=== PATIENT | male | born 1940 | race Hispanic/Latino ===

== ENCOUNTER 2017-01-27 19:12 | Observation (INO) | payer MEDICARE, BC ==
--- NOTE | 2017-01-27 20:17 | ED PDOC ---
Syncope/Near Syncope/Dizzyness Time Seen by Provider: 01/27/17 19:36 Chief Complaint (Nursing): Syncope Chief Complaint (Provider): Syncope History Per: Family (daughter) History/Exam Limitations: no limitations Onset/Duration Of Symptoms: Mins (just prior to arrival), Sudden Onset Current Symptoms Are (Timing): Better Number Of Syncopal Episodes: 1 Activity At Onset Of Symptoms: Sitting Associated Symptoms Preceding Syncopal Episode: No Predromal Symptoms (Sudden Onset). denies: Lightheadedness, Other (convulsive activity) Fall Associated With With Symptoms: No Severity: Moderate Additional Complaint(s): Dev Villegas is a 77 year old male, with no pertinent past medical history, who presents to the emergency department via EMS for the evaluation of a syncopal episode, that the patient experienced just prior to arrival. According to the patient's , he suddenly went unconscious while sitting down. Patient states that he does not remember what happened. Initially, after waking up, patient's daughter reports that he was in a state of confusion and wasn't speaking, but rather just looking around without speaking, which resolved itself within a few minutes. No convulsive activity was reported during the syncopal episode. Associated cough has been present for the past 3 days. The cough is reportedly dry; however, patient feels like he has a lot chest congestion going up into his throat. Denies a fever, rhinorrhea, sore throat, shortness of breath, focal weakness, blurry vision, difficulty speaking, or pre- syncopal symptoms of lightheadedness, chest pain, or a headache. PMD: Dr. Alex Marino - Risk Factors Risk Factors (Syncope): Neg: H/O Ventricular Arrhythmias, Known Coronary Artery Disease, H/O Severe Valvular Disease, H/O Congenital Heart Disease, Exertional Syncope Past Medical History Reviewed: Historical Data, Nursing Documentation, Vital Signs Vital Signs: Last Vital Signs Temp 96.9 F L 01/27/17 19:17 Pulse 68 01/27/17 19:17 Resp 18 01/27/17 19:17 BP 136/69 01/27/17 19:17 Pulse Ox 98 01/27/17 19:17 - Medical History Other PMH: Prostate Disease - Surgical History Surgical History: No Surg Hx - Family History Family History: States: No Known Family Hx - Living Arrangements Living Arrangements: With Family - Social History Current smoker - smoking cessation education provided: No Ex-Smoker (has not smoked in the last 12 months): Yes (Heavy smoker) Alcohol: None - Home Medications Home Medications: Ambulatory Orders Medication Instructions Recorded Tamsulosin [Flomax] 0.4 mg PO DAILY 01/27/17 Aspirin [Aspirin Chewable] 81 mg PO DAILY #30 01/28/17 Atorvastatin [Lipitor] 20 mg PO HS #30 tab 01/28/17 Losartan [Cozaar] 50 mg PO DAILY #30 01/28/17 Tamsulosin [Flomax] 0.4 mg PO DAILY #30 cap 01/28/17 - Allergies Allergies/Adverse Reactions: Allergies Allergy/AdvReac Type Severity Reaction Status Date / Time Unobtainable Allergy Verified 01/27/17 23:43 Review of Systems ROS Statement: Except As Marked, All Systems Reviewed And Found Negative Constitutional: Negative for: Fever Eyes: Negative for: Vision Change ENT: Negative for: Nose Discharge, Throat Pain Cardiovascular: Positive for: Other (chest congestion). Negative for: Chest Pain Respiratory: Positive for: Cough. Negative for: Shortness of Breath, Sputum Neurological: Positive for: Confusion, Other (loss of consciousness and memory impairment; denies lightheadedness or focal weakness). Negative for: Change in Speech (difficulty speaking), Headache Physical Exam - Reviewed Nursing Documentation Reviewed: Yes Vital Signs Reviewed: Yes - Physical Exam Appears: Positive for: Well (tired appearing), Non-toxic, No Acute Distress Head Exam: Positive for: ATRAUMATIC, NORMAL INSPECTION, NORMOCEPHALIC Skin: Positive for: Normal Color, Warm, Dry Eye Exam: Positive for: Normal appearance, EOMI, PERRL ENT: Positive for: Normal ENT Inspection, Pharynx Is (clear), Other (tacky mucous membranes). Negative for: Pharyngeal Erythema, Tonsillar Exudate Neck: Positive for: Normal, Painless ROM, Supple Cardiovascular/Chest: Positive for: Regular Rate, Rhythm. Negative for: Murmur Respiratory: Positive for: Normal Breath Sounds. Negative for: Wheezing, Respiratory Distress Gastrointestinal/Abdominal: Positive for: Normal Exam, Soft. Negative for: Tenderness Back: Positive for: Normal Inspection. Negative for: Decreased ROM Extremity: Positive for: Normal ROM. Negative for: Tenderness, Deformity Lymphatic: Negative for: Adenopathy Neurologic/Psych: Positive for: Alert, Oriented, Facial Droop (appears to have slight L facial droop; however, daughter states that this normal for patient). Negative for: Motor/Sensory Deficits - Laboratory Results Result Diagrams: 01/28/17 07:30 01/28/17 07:30 - ECG O2 Sat by Pulse Oximetry: 98 (RA) Pulse Ox Interpretation: Normal Medical Decision Making Medical Decision Makin:36 Initial Impression: Syncope and cough Initial Plan: * CT Head w/o Contrast * Chest X-Ray * EKG * VBG Shock Panel * CBC * CMP * PT/PTT * Troponin I * Magnesium * Phosphorous * Glucose, Blood, POC * Urine Dip * Influenza A/B * Blood Culture * Reevaluation 20:08 Patient will require hospitalization for syncope given age and possibility of arrhythmia. EXAM: CT Head Without Intravenous Contrast CLINICAL HISTORY: 77 years old, male; Signs and symptoms; Syncope and collapse TECHNIQUE: Axial computed tomography images of the head/brain without intravenous contrast. This CT exam was performed using one or more of the following dose reduction techniques: automated exposure control, adjustment of the mA and/or kV according to patient size, and/or use of iterative reconstruction technique. Coronal and sagittal reformatted images were created and reviewed. COMPARISON: No relevant prior studies available. FINDINGS: Brain: Mild atrophy. No intracranial hemorrhage. No mass. Several scattered foci of decreased attenuation within periventricular/subcortical white matter. Chronic lacunar infarcts within basal ganglia. No definite edema. Ventricles: No hydrocephalus. Bones/joints: No acute fracture. Soft tissues: Unremarkable. Vasculature: Atherosclerotic disease of intracranial arteries. Sinuses: Moderate mucosal thickening of ethmoid sinuses. Moderate mucosal thickening/air-fluid level of RIGHT maxillary sinus. Tiny air-fluid level of LEFT maxillary sinus. Scattered mild mucosal thickening of sphenoid, RIGHT frontal sinuses. Mastoid air cells: No mastoid effusion. Orbits: Unremarkable as visualized. IMPRESSION: 1. Nonspecific white matter changes. Acute infarction may be CT occult within first 24 hours. If a focal deficit persists, consider followup CT or MRI for further evaluation. 2. Sinus disease. 3. Incidental/non-acute findings are described above. Thank you for allowing us to participate in the care of your patient. Dictated and Authenticated by: Simon Schreiber MD 01/27/2017 8:55 PM Eastern Time ([place] & [place]) Elevated lactic acid, otherwise no clinically significant lab abnormalities. CXR demonstrates increased interstitial markings. CHAYA Diego PMD for hospitalization Scribe Attestation: Documented by Amarjit Macias, acting as a scribe for Anna Tinajero MD. Provider Scribe Attestation: All medical record entries made by the Scribe were at my direction and personally dictated by me. I have reviewed the chart and agree that the record accurately reflects my personal performance of the history, physical exam, medical decision making, and the department course for this patient. I have also personally directed, reviewed, and agree with the discharge instructions and disposition. Disposition - Clinical Impression Clinical Impression: Syncope Discussed With : García Diego - Disposition Disposition Time: 20:00 Condition: SERIOUS - Pt Status Changed To: Hospital Disposition Of: Observation - POA Present On Arrival: Falls Or Trauma
[2017-01-27 20:50] LABS: BASO # 0.1 K/uL (0.0-0.2); BASO % 0.6 % (0.0-2.0); EOS # 0.5 K/uL (0.0-0.7); EOS % 4.3 % (0.0-4.0); HEMATOCRIT 40.6 % (35.0-51.0); LYMPH # 2.4 K/uL (1.0-4.3); LYMPH % 23.2 % (20.0-40.0); MEAN CELL VOLUME 86.1 fl (80.0-94.0); MEAN CORPUSCULAR HEMOGLOBIN 29.6 pg (27.0-31.0); MEAN CORPUSCULAR HGB CONC 34.3 g/dL (33.0-37.0); MEAN PLATELET VOLUME 7.6 fl (7.2-11.7); MONO # 0.6 K/uL (0.0-0.8); MONO % 5.6 % (0.0-10.0); NEUT # 6.9 K/uL (1.8-7.0); NEUT % 66.3 % (50.0-75.0); RED CELL DISTRIBUTION WIDTH 13.9 % (11.5-14.5); WHITE BLOOD COUNT 10.5 K/uL (4.8-10.8)
[2017-01-27 20:52] LABS: VENOUS BLOOD GAS BASE EXCESS -4.7 mmol/L (0.0-2.0); VENOUS BLOOD GAS PCO2 67 mmHg (40-60); VENOUS BLOOD PH 7.18 (7.32-7.43)
--- NOTE | 2017-01-27 20:55 | CT ---
EXAM: CT Head Without Intravenous Contrast CLINICAL HISTORY: 77 years old, male; Signs and symptoms; Syncope and collapse TECHNIQUE: Axial computed tomography images of the head/brain without intravenous contrast. This CT exam was performed using one or more of the following dose reduction techniques: automated exposure control, adjustment of the mA and/or kV according to patient size, and/or use of iterative reconstruction technique. Coronal and sagittal reformatted images were created and reviewed. COMPARISON: No relevant prior studies available. FINDINGS: Brain: Mild atrophy. No intracranial hemorrhage. No mass. Several scattered foci of decreased attenuation within periventricular/subcortical white matter. Chronic lacunar infarcts within basal ganglia. No definite edema. Ventricles: No hydrocephalus. Bones/joints: No acute fracture. Soft tissues: Unremarkable. Vasculature: Atherosclerotic disease of intracranial arteries. Sinuses: Moderate mucosal thickening of ethmoid sinuses. Moderate mucosal thickening/air-fluid level of RIGHT maxillary sinus. Tiny air-fluid level of LEFT maxillary sinus. Scattered mild mucosal thickening of sphenoid, RIGHT frontal sinuses. Mastoid air cells: No mastoid effusion. Orbits: Unremarkable as visualized. IMPRESSION: 1. Nonspecific white matter changes. Acute infarction may be CT occult within first 24 hours. If a focal deficit persists, consider followup CT or MRI for further evaluation. 2. Sinus disease. 3. Incidental/non-acute findings are described above.
[2017-01-27 21:11] LABS: BLOOD UREA NITROGEN 14 mg/dl (9-20); CALCIUM 9.6 mg/dL (8.4-10.2); CARBON DIOXIDE 24 mmol/L (22-30); CHLORIDE 99 mmol/L (98-107); GFR AFRICAN-AMERICAN > 60; GLUCOSE,RANDOM 99 mg/dL (75-110); MAGNESIUM 2.1 MG/DL (1.6-2.3); PHOSPHOROUS 3.3 mg/dl (2.5-4.5); SODIUM 139 mmol/l (132-148); TOTAL PROTEIN 7.8 G/DL (6.3-8.2)
[2017-01-27 21:12] LABS: ALB/GLOB RATIO 1.3 (1.0-2.1); ALKALINE PHOSPHATASE 60 U/L (38-126); ALT/SGPT 28 U/L (21-72); AST/SGOT 28 U/L (17-59); BILIRUBIN,TOTAL 0.6 mg/dl (0.2-1.3)
[2017-01-27 21:39] LABS: PARTIAL THROMBOPLASTIN TIME 29.3 SECONDS (23.3-32.5)
[2017-01-27] MEDS ORDERED: cefTRIAXone (Rocephin) 1 gm Inj ONE (23:44)
[2017-01-28] MEDS: Dextrose 5%/0.45% NS 1,000 ML IV SCH ×2 (00:01→13:45)
[2017-01-28 08:57] LABS: HEMATOCRIT 37.7 % (35.0-51.0); MEAN CELL VOLUME 85.7 fl (80.0-94.0); MEAN CORPUSCULAR HEMOGLOBIN 29.3 pg (27.0-31.0); MEAN CORPUSCULAR HGB CONC 34.1 g/dL (33.0-37.0); RED CELL DISTRIBUTION WIDTH 13.4 % (11.5-14.5); WHITE BLOOD COUNT 11.1 K/uL (4.8-10.8)
[2017-01-28 09:00] LABS: BLOOD UREA NITROGEN 9 mg/dl (9-20); CARBON DIOXIDE 28 mmol/L (22-30); CHLORIDE 103 mmol/L (98-107); GFR AFRICAN-AMERICAN > 60; GLUCOSE,RANDOM 135 mg/dL (75-110); POTASSIUM 4.5 MMOL/L (3.6-5.0); SODIUM 140 mmol/l (132-148)
[2017-01-28] MEDS ORDERED: Enoxaparin 40 mg Syringe SC SCH (09:00)
--- NOTE | 2017-01-28 09:59 | RAD ---
HISTORY: sob COMPARISON: No prior. FINDINGS: LUNGS: No active pulmonary disease. PLEURA: No significant pleural effusion identified, no pneumothorax apparent. CARDIOVASCULAR: Normal. OSSEOUS STRUCTURES: No significant abnormalities. VISUALIZED UPPER ABDOMEN: Normal. OTHER FINDINGS: None. IMPRESSION: No active disease.
--- NOTE | 2017-01-28 10:09 | CARD ---
APPROVED REPORT EKG Measurement Heart [id number] <Conclusion> Sinus rhythm with 1st degree AV block Otherwise normal ECG
--- NOTE | 2017-01-28 11:37 | CARD ---
APPROVED REPORT EXAM: Two-dimensional and M-mode echocardiogram with Doppler and color Doppler. Other Information Quality : GoodRhythm : NSR INDICATION Syncope 2D DIMENSIONS IVSd0.80 (0.7-1.1cm)LVDd3.93 (3.9-5.9cm) LVOT Diameter2.32 (1.8-2.4cm)PWd0.92 (0.7-1.1cm) IVSs1.32 (0.8-1.2cm)LVDs2.59 (2.5-4.0cm) FS (%) 34.1 %PWs1.22 (0.8-1.2cm) M-Mode DIMENSIONS Left Atrium (MM)4.65 (2.5-4.0cm)IVSd1.01 (0.7-1.1cm) Aortic Root3.32 (2.2-3.7cm)LVDd5.73 (4.0-5.6cm) Aortic Cusp Exc.1.89 (1.5-2.0cm)PWd0.87 (0.7-1.1cm) IVSs0.87 cmFS (%) 18 % LVDs4.68 (2.0-3.8cm)PWs1.05 cm Mitral Valve MV E Kafxrhur16.3cm/sMV DECEL [id number] A Hipjkccf93.3cm/s MV GQO91aoR/A ratio0.7MVA (PHT)3.81cm2 TDI Lateral E' Peak V8.15cm/sMedial E' Peak V8.31cm/sE/Lateral E'7.9 E/Medial E'7.7 LEFT VENTRICLE The left ventricle is normal size. There is normal left ventricular wall thickness. The left ventricular function is normal. The left ventricular ejection fraction is - 75%. There is normal LV segmental wall motion. Transmitral Doppler flow pattern is Grade I-abnormal relaxation pattern. No left ventricle thrombus noted on this study. There is no ventricular septal defect visualized. There is no left ventricular aneurysm. There is no mass noted in the left ventricle. RIGHT VENTRICLE The right ventricle is normal size. There is normal right ventricular wall thickness. The right ventricular systolic function is normal. ATRIA The left atrium is mildly dilated. There is no thrombus suspected in the left atrium. The right atrium size is normal. The interatrial septum is intact with no evidence for an atrial septal defect. AORTIC VALVE The aortic valve is normal in structure and function. No aortic regurgitation is present. There is no aortic valvular stenosis. There is no aortic valvular vegetation. MITRAL VALVE The mitral valve is normal in structure and function. There is no evidence of mitral valve prolapse. There is no mitral valve stenosis. There is no mitral valve regurgitation noted. TRICUSPID VALVE The tricuspid valve is normal in structure and function. There is no tricuspid valve regurgitation noted. There is no tricuspid valve prolapse or vegetation. There is no tricuspid valve stenosis. PULMONIC VALVE The pulmonic valve is not well visualized. Doppler studies of the PV were not performed. GREAT VESSELS The aortic root is normal in size. The IVC is normal in size and collapses >50% with inspiration. PERICARDIAL EFFUSION There is a small anterior echo free space. There is no pleural effusion. <Conclusion> The left ventricle is normal in size and wall thickness. The left ventricular function is normal. The left ventricular ejection fraction is - 75%. The left atrium is mildly dilated. The mitral, aortic and tricuspid valves are normal.
--- NOTE | 2017-01-28 12:48 | MRI ---
PROCEDURE: MRI BRAIN WITHOUT CONTRAST HISTORY: code bat COMPARISON: Comparison is made to previous CT dated 01/27/2017 TECHNIQUE: Multiplanar, multisequence MR images of the brain were obtained without intravenous contrast enhancement. FINDINGS: HEMORRHAGE: None DWI: No evidence of an acute or early subacute infarction. BRAIN PARENCHYMA: Small foci of encephalomalacia in the basal ganglia and thalamus larger on the right suggestive of old lacunar infarct. Moderate atrophy and moderate chronic microvascular white matter ischemic disease. VENTRICLES: Unremarkable. No hydrocephalus. CRANIUM: Unremarkable. ORBITS: Grossly unremarkable. PARANASAL SINUSES/MASTOIDS: Almost complete opacification of the right maxillary sinus and small air-fluid level at the left maxillary sinus. Diffuse mucosal thickening in the ethmoid and frontal sinuses suggestive of sinusitis. VASCULAR SYSTEM: Skull base flow voids intact. OTHER FINDINGS: None. IMPRESSION: No evidence of acute or subacute infarct. No evidence of acute intracranial hemorrhage mass effect or midline shift. Moderate atrophy. Moderate white matter changes suggestive of chronic microvascular ischemic disease. Lacunar chronic infarcts at the bilateral basal ganglia and thalami larger on the right. Pansinusitis more prominent at the right maxillary sinus.
--- NOTE | 2017-01-28 12:50 | CON ---
DATE: 01/28/2017 REASON FOR CONSULTATION: Syncope versus seizures. The patient is a 77-year-old Chinese male who has a history of hypertension and hyperlipidemia who nuno s not been taking medications for a long time. Last time he saw his primary physician, Dr. Diego, a few years ago. The patient is a former smoker who quit 2-3 years ago according to him. He is an o ccasional drinker, lives with his . The patient felt dizzy and collapsed while sitting at home. There was no fall. The patient did report urinary incontinence. He denies any tongue biting and th e patient is concerned about his . She is getting nervous. She had recent foot amputation and phil steiner bought her a shoe that cost him almost $1000. The patient denies any history of stroke or heart at tack in the past. The patient does not recall the event, but blames his for being nervous and e xaggerated the whole situation. The patient does not recall experiencing speech difficulty. The pat ient denies any history of seizures. SOCIAL HISTORY: The patient is a former smoker who quit 2-3 years ago. He is and lives with his . MEDICATIONS: Rocephin 1 gram intravenously daily, Cozaar 50 mg once a day, Flomax 0.4 mg once a day, Lovenox 40 mg subcutaneously once a day, D5 half normal saline at 70 mL an hour. REVIEW OF SYSTEMS: No nausea or vomiting. No fever or chills. The patient did report urinary incon tinence during the event of unresponsiveness. PHYSICAL EXAMINATION: GENERAL: The patient is an elderly male who does not appear to be in any distress. VITAL SIGNS: Blood pressure 147/65, heart rate 69, temperature 98.2, respirations 18. HEENT: Normocephalic. NECK: No JVD. CHEST: Clear. HEART: S1, S2 regular. ABDOMEN: Soft. EXTREMITIES: No edema. Head CT scan without contrast, nonspecific white matter changes, sinus disease. EKG reveals sinus rh ythm with first degree AV block at a rate of 69. ASSESSMENT: 1. Syncope versus seizure activity. 2. Hypertension. 3. Hyperlipidemia. 4. Rule out transient ischemic attack. RECOMMENDATIONS: The case was discussed at length with Dr. Diego, the primary physician. Janes rojas brain MRI performed today as well as follow carotid Doppler study scheduled to be performed tod ay. I will review the echocardiograph study that was performed today. In the meantime, maintain the patient on aspirin and Lipitor therapy. In the meantime, continue the patient on Cozaar, subcutaneo us Lovenox, start aspirin 81 mg once a day, Lipitor 20 mg once a day. Nahid Maldonado MD cc: [id number] TT: 01/28/2017 12:49:37 Confirmation # [id number] Dictation # [id number]
--- NOTE | 2017-01-28 13:12 | CP.PCM.HP ---
History of Present Illness - History of Present Illness History of Present Illness: Dev Villegas is a 77 year old male, with past medical history of HTN and BPH. Patient not c/o with antihypertensive medication, his last visit in my office was about 3 yrs ago. He presents in ER via EMS for the evaluation of a syncopal episode, that the patient experienced just prior to arrival. According to the patient's , he suddenly went unconscious while sitting down. Patient states that he does not remember what happened. Initially, after waking up, patient's daughter reports that he was in a state of confusion and wasn't speaking, but rather just looking around without speaking, which resolved itself within a few minutes. No convulsive activity was reported during the syncopal episode. Associated cough has been present for the past 3 days. The cough is reportedly dry; however, patient feels like he has a lot chest congestion going up into his throat. o specific precipitants for the event. Denies a fever, rhinorrhea, sore throat, shortness of breath, focal weakness, blurry vision, difficulty speaking, or pre-syncopal symptoms of lightheadedness , chest pain, or a headache. Present on Admission - Present on Admission Any Indicators Present on Admission: No Review of Systems - Constitutional Constitutional: As Per HPI - EENT Eyes: As Per HPI Ears: As Per HPI Nose/Mouth/Throat: As Per HPI - Cardiovascular Cardiovascular: As Per HPI - Respiratory Respiratory: As Per HPI - Gastrointestinal Gastrointestinal: As Per HPI - Musculoskeletal Musculoskeletal: As Per HPI - Integumentary Integumentary: As Per HPI - Neurological Neurological: As Per HPI Past Patient History - Past Social History Smoking Status: Former Smoker - CARDIAC Hx Hypertension: Yes - PULMONARY Hx Respiratory Disorders: No - NEUROLOGICAL Hx Neurological Disorder: No - HEENT Hx HEENT Problems: No - RENAL Hx Chronic Kidney Disease: No - ENDOCRINE/METABOLIC Hx Endocrine Disorders: No - HEMATOLOGICAL/ONCOLOGICAL Hx Blood Disorders: No Hx AIDS: No Hx Human Immunodeficiency Virus (HIV): No - INTEGUMENTARY Hx Dermatological Problems: No - MUSCULOSKELETAL/RHEUMATOLOGICAL Hx Musculoskeletal Disorders: No Hx Falls: No - GASTROINTESTINAL Hx Gastrointestinal Disorders: No - GENITOURINARY/GYNECOLOGICAL Hx Prostate Problems: Yes - PSYCHIATRIC Hx Psychophysiologic Disorder: No Hx Substance Use: No - SURGICAL HISTORY Hx Surgeries: No - ANESTHESIA Hx Anesthesia: Yes Hx Anesthesia Reactions: No Hx Malignant Hyperthermia: No Has any member of the family had a problem w/ anesthesia?: No Meds Allergies/Adverse Reactions: Allergies Allergy/AdvReac Type Severity Reaction Status Date / Time Unobtainable Allergy Verified 01/27/17 23:43 Physical Exam - Constitutional Appears: Non-toxic - Head Exam Head Exam: ATRAUMATIC, NORMAL INSPECTION, NORMOCEPHALIC - Eye Exam Eye Exam: EOMI, Normal appearance, PERRL Pupil Exam: PERRL - ENT Exam ENT Exam: Mucous Membranes Moist - Neck Exam Neck exam: Positive for: Normal Inspection - Respiratory Exam Respiratory Exam: Decreased Breath Sounds, Clear to Auscultation Bilateral - Cardiovascular Exam Cardiovascular Exam: REGULAR RHYTHM, +S1, +S2 - GI/Abdominal Exam GI & Abdominal Exam: Normal Bowel Sounds - Neurological Exam Neurological exam: Alert, CN II-XII Intact, Oriented x3, Reflexes Normal - Psychiatric Exam Psychiatric exam: Normal Affect - Skin Skin Exam: Normal Color Results - Vital Signs Recent Vital Signs: Last Vital Signs Temp 97.4 F L 01/28/17 13:05 Pulse 75 01/28/17 13:05 Resp 18 01/28/17 13:05 BP 145/66 01/28/17 13:05 Pulse Ox 97 01/28/17 13:05 - Labs Result Diagrams: 01/28/17 07:30 01/28/17 07:30 Labs: Laboratory Results - last 24 hr 01/28/17 01/28/17 07:30 07:30 WBC 11.1 H RBC 4.40 Hgb 12.9 Hct 37.7 MCV 85.7 MCH 29.3 MCHC 34.1 RDW 13.4 Plt Count 270 Sodium 140 Potassium 4.5 Chloride 103 Carbon Dioxide 28 Anion Gap 14 BUN 9 Creatinine 0.8 Est GFR ( Amer) > 60 Est GFR (Non-Af Amer) > 60 Random Glucose 135 H Calcium 9.0 Lactate Dehydrogenase 227 L Assessment & Plan (1) Hypertensive cardiovascular disease or syndrome Status: Chronic (2) BPH (benign prostatic hyperplasia) Status: Chronic (3) Syncope Status: Acute - Assessment and Plan (Free Text) Plan: W/U pending.
[2017-01-28 16:33] VITALS: RESP 20
--- NOTE | 2017-01-28 17:15 | US ---
PROCEDURE: Carotid vertebral duplex sonography HISTORY: syncope COMPARISON: None available. TECHNIQUE: Grayscale, color Doppler and spectral Doppler assessment of the carotid system bilaterally. This includes common carotid, internal carotid arteries Vertebral artery assessment with respect to direction of flow (antegrade or retrograde) FINDINGS: RIGHT carotid system: Assessment of plaque: Heterogeneous plaque formation diffuse throughout the right ICA. Disease is also seen in the external carotid and bulb. Peak systolic ICA velocity: 168 cm/sec End-diastolic velocity: 24 cm/sec ICA/CCA ratio: 1.8 Vertebral artery flow: Antegrade LEFT carotid system: Assessment of plaque: Partially calcified plaque in the bulb extending into the right ICA. Peak systolic ICA velocity: 104 cm/sec End-diastolic velocity: 29 cm/sec ICA/CCA ratio: 1.5 Vertebral artery flow: Antegrade IMPRESSION: Right ICA degree of stenosis: 50- 69%. Left ICA degree of stenosis: Less than 50% Reference Internal Carotid Artery (ICA) Peak Systolic Velocity (PSV) for above: 1. Less than 50% stenosis less than 125 cm/s peak systolic velocity 2. 50-69% stenosis 125-230cm/s peak systolic velocity 3. Greater than 70% but less than near occlusion greater than 230 cm/s peak systolic velocity
[2017-01-28 18:04] LABS: RBC URINE < 1 /hpf (0-3); URINE BACTERIA RARE (<OCC); URINE BILIRUBIN NEGATIVE (NEGATIVE); URINE BLOOD NEGATIVE (NEGATIVE); URINE COLOR YELLOW (YELLOW); URINE GLUCOSE (UA) NEG (Normal); URINE KETONE NEGATIVE (NEGATIVE); URINE LEUKOCYTE ESTERASE NEG Leu/uL (Negative); URINE PROTEIN NEGATIVE (NEGATIVE); WBC URINE < 1 /hpf (0-5)
[2017-01-28 20:20] VITALS: BP 146/78; PULSE 85; TEMP 99
[2017-01-29 15:15] LABS: PROSTATE SPECIFIC ANTIGEN 3.87 ng/ML (0.00-4.0)
[2017-01-29 22:33] LABS: FOLATE > 20.0 ng/mL
[2017-01-30 00:16] VITALS: O2SAT 98
== END 2017-01-28 19:25 | disposition home or self-care (01) ==
LOC: H.ER 19:12 → H.ERHOLD 22:20 → H.TEL 01-28 01:32
PROVIDERS: ADMIT Internal Medicine; ATTEND Internal Medicine
DX: R55 Syncope and collapse (principal); I11.9 Hypertensive heart disease without heart failure; E78.5 Hyperlipidemia, unspecified; Z87.891 Personal history of nicotine dependence; N40.1 Benign prostatic hyperplasia with lower urinary tract symptoms; N39.498 Other specified urinary incontinence
CPT/HCPCS: 36415; 70450; 70551; 71010; 80048; 80053; 81003; 82550; 82607; 82746; 82803; 82948; 83615; 83735; 84100; 84153; 84443; 84484; 85025; 85027; 85378; 85610; 85730; 87040; 87804; 93005; 93306; 93880; 95816; 97161; 99285; G0378; G8978; G8979; G8980; J0696; J1650; J7042